=== PATIENT | female | born 1955 | race African-American/Black ===

== ENCOUNTER 2017-02-14 13:30 | Emergency (ER) | payer MEDICAID, OTHER ==
[~2017-02-14] VITALS: Ht 170.2 cm; Wt 65.8 kg
[2017-02-14 13:30] VITALS: BP 117/82
[2017-02-14] MEDS ORDERED: BENZTROPINE ME0.5 MG PO (13:37)
[2017-02-14] MEDS ORDERED: XANAX0.25 MG ORAL (13:37)
[2017-02-14] MEDS ORDERED: TRAZODONE HCL150 MG ORAL (13:37)
[2017-02-14] MEDS ORDERED: Methocarbamol 750mg tab ORAL ONE (14:00)
[2017-02-14] MEDS ORDERED: IBUPROFEN600 MG ORAL (15:22)
[2017-02-14 15:32] VITALS: BP 117/82
--- NOTE | 2017-02-14 15:34 | Diagnostic Imaging Report ---
Indication: PAIN Technique: 3 views of the right shoulder Comparison: none Findings: There is calcific tendinosis of the rotator cuff. There are degenerative proliferative changes of the humeral head. No acute fractures. No dislocations. The joint space is preserved Impression:No acute process. Findings as noted
--- NOTE | 2017-02-14 19:23 | Emergency Room Report ---
History of Present Illness General Chief Complaint: Pain Source: Patient Present Illness HPI The patient is a 61-year-old female presenting for head pain and right shoulder pain. She states that she was sitting in a tub when a piece of drywall fell onto her male partner's head. He then fell onto her. Pain is described as a 10 out of 10 dull ache primarily to the right shoulder and does not radiate. She denies loss of consciousness. She denies other symptoms including nausea, vomiting, neck pain, shortness of breath, numbness or tingling Allergies: Coded Allergies: PENICILLINS (Unverified Allergy, Unknown, 02/14/17) Patient History Past Medical History: see triage record Pertinent Family History: none Reviewed Nursing Documentation: PMH: Agreed, PSxH: Agreed Nursing Documentation-PMH History Of Psychiatric Problem: Yes - Schizophrenia Review of Systems All Other Systems: negative except mentioned in HPI Physical Exam Vital Signs Date Time Temp Pulse Resp B/P Pulse Ox O2 Delivery O2 Flow Rate FiO2 02/14/17 13:26 97.5 50 16 117/82 99 Room Air Sp02 EP Interpretation: reviewed, normal General Appearance: no apparent distress, alert, GCS 15, non-toxic Head: normocephalic, atraumatic Eyes: bilateral eye PERRL, bilateral eye normal inspection ENT: hearing grossly normal, normal pharynx, no angioedema, normal voice Neck: full range of motion, supple/symm/no masses Respiratory: chest non-tender, lungs clear, normal breath sounds, speaking full sentences Musculoskeletal: normal inspection, decreased range of motion - R shoulder, tender - TTP over the R shoulder diffusely Neurologic: alert, oriented x3, responsive, motor strength/tone normal, sensory intact, speech normal Psychiatric: judgement/insight normal, memory normal, mood/affect normal, no suicidal/homicidal ideation Skin: normal color, no rash, warm/dry, well hydrated Medical Decision Making PA Attestation Dr. Veronica is my supervising physician. Patient management was discussed with my supervising physician Diagnostic Impression: Primary Impression: Contusion of shoulder, right Qualified Codes: S40.011A - Contusion of right shoulder, initial encounter ER Course The patient is a 61-year-old female presenting for head pain and right shoulder pain Ddx considered include but not limited to sprain/strain, fracture, contusion, concussion, among others PE: NAD Head is normocephalic atraumatic There is tenderness to palpation diffusely over the right shoulder with limited active range of motion. No obvious deformity. No ecchymosis. No edema X-ray of the right shoulder is unremarkable Patient given pain medications and will be discharged home. ER precautions given Other X-Ray Diagnostic Results Other X-Ray Diagnostic Results : X-Ray ordered: R shoulder # of Views/Limited Vs Complete: 3 View Indication: Pain EP Interpretation: Yes Interpretation: no dislocation, no soft tissue swelling, no fractures Impression: No acute disease Interpreting ER Provider: Myself TORI Scribe Text My interpretation of the R shoulder xrays are there are no fractures, dislocations or soft tissue swelling. Last Vital Signs Date Time Temp Pulse Resp B/P Pulse Ox O2 Delivery O2 Flow Rate FiO2 02/14/17 15:32 97.5 56 16 117/82 99 Room Air Status: improved Disposition: HOME, SELF-CARE Condition: Improved Scripts Ibuprofen* (MOTRIN*) 600 Mg Tablet 600 MG ORAL Q8H Y for For Pain, #30 TAB 0 Refills Prov: BRAYAN CANADA 02/14/17 Patient Instructions: Shoulder Pain Additional Instructions: I discussed my findings with the patient. All questions and concerns have been answered. Treatment and medication compliance have been addressed. I advised the patient that they need to follow up with PMD in 3-5 days. Return to ED if pain remains or worsens, numbness or tingling occurs, new rash is noticed, fever is noticed, or if needed for any reason. Patient verbalized understanding of discharge instructions. BRAYAN CANADA Feb 14, 2017 19:23
== END 2017-02-14 15:32 | disposition home or self-care (01) ==
LOC: EDBD 13:30 → EMR 13:50
DX: S40.011A Contusion of right shoulder, initial encounter (principal); R51 Headache; W22.8XXA Striking against or struck by other objects, initial encounter; Y93.9 Activity, unspecified; Y92.9 Unspecified place or not applicable; Z88.0 Allergy status to penicillin; F20.9 Schizophrenia, unspecified
CPT/HCPCS: 99284